=== PATIENT | male | born 1965 | race Caucasian/White ===

== ENCOUNTER 2024-02-20 13:12 | Outpatient (OUT) | payer SELFPAY ==
--- NOTE | 2024-02-20 | XR_ITS ---
The [address] [address] Patient Name: SARAH CARBALLO MRN: [id number] date: 1965 Sex: M Assigned Patient Location: Current Patient Location: Accession/Order Number: [id number] Exam Date: 02/20/2024 13:13 Report Date: 02/20/2024 16:08 At the request of: RIP YOUNG Procedure: XR foot BALA min 3V EXAMINATION: XR foot BALA min 3V HISTORY: BILATERAL FOOT PAIN [; heel and arch pain; left greater than right COMPARISON: XR foot left 07/07/2021 FINDINGS: RIGHT FINDINGS: BONES: Mechanical fusion the first metatarsophalangeal joint via dorsal plate and screws; no hardware fracture loosening. No bone fracture or dislocation. Mild degenerative changes the midfoot. Large calcaneal plantar spur. SOFT TISSUES: No visible soft tissue swelling. OTHER: Negative. LEFT FINDINGS: BONES: Minimal degenerative changes the first metatarsophalangeal joint and mild degenerative changes the midfoot. Large calcaneal plantar spur. SOFT TISSUES: No visible soft tissue swelling. OTHER: Negative. XR/XR foot BALA min 3V IMPRESSION: RIGHT CONCLUSION: 1. Mechanical fusion of the first metatarsophalangeal joint without evidence of hardware failure or change in alignment. 2. Large calcaneal plantar spur of uncertain clinical significance. No acute bone abnormality or significant degenerative joint disease. LEFT CONCLUSION: 1. Large calcaneal plantar spur of uncertain clinical significance. No acute bone abnormality or significant degenerative joint disease. Electronically authenticated by: AYDE LAZCANO Date: 02/20/2024 16:08
== END 2024-02-20 13:13 | disposition home or self-care (01) ==
LOC: EC 13:12
PROVIDERS: Visit Provider Podiatrist Foot & Ankle Surgery
DX: M79.671 Pain in right foot (principal); M79.672 Pain in left foot; Z98.890 Other specified postprocedural states; M77.32 Calcaneal spur, left foot
CPT/HCPCS: 73630